=== PATIENT | female | born 1960 | race Caucasian/White ===

== ENCOUNTER → 2019-12-18 14:46 | Outpatient (CLI) | payer OTHER, SELFPAY ==
[2019-12-21 07:42] LABS: COVID19 Sendout Not Detected (Not Detect)
== END ==
PROVIDERS: Visit Provider Physician Assistant
DX: Z11.59 Encounter for screening for other viral diseases (principal)
CPT/HCPCS: 87635

== ENCOUNTER 2020-04-02 08:32 | Observation (INO) | payer OTHER, SELFPAY ==
[2020-04-02] VITALS (11 sets, daily range): BP systolic 140–168; BP diastolic 71–89; PULSE 91–101; RESP 16–26; TEMP 36.6–37.5; O2SAT 97–100; BMI 28.8; BMI 29.8
--- NOTE | 2020-04-02 08:51 | DI.CT.S_ITS ---
PROCEDURE: CT HEAD/BRAIN WO CON INDICATIONS: right side weakness since last night TECHNIQUE: Noncontrast 4.5 mm thick angled axial sections acquired from the foramen magnum to the vertex, with coronal and sagittal reformats. For radiation dose reduction, the following was used: automated exposure control, adjustment of mA and/or kV according to patient size. COMPARISON: None. FINDINGS: Image quality: Excellent. CSF spaces: Basal cisterns are patent. No extra-axial fluid collections. Ventricles are normal in size and shape. Brain: No midline shift. No intracranial masses or hemorrhage. Torres-white matter interface is normal. Skull and face: Calvarium and visualized facial bones are intact, without suspicious lesions. Sinuses: Mucosal thickening is seen involving the left maxillary sinus. No abnormal fluid is seen within the mastoid air cells. IMPRESSION: No CT findings of early stroke are detected. No acute intracranial hemorrhage is seen. If there is strong clinical suspicion for an acute stroke, please consider an MRI for further evaluation, as it is more sensitive (assuming that there is no contraindication to MRI). Dictated by: Cesar Briscoe M.D. on 04/02/2020 at 8:20 Approved by: Cesar Briscoe M.D. on 04/02/2020 at 8:21
--- NOTE | 2020-04-02 08:52 | DI.CT.S_ITS ---
PROCEDURE: CT ANGIO HEAD AND NECK INDICATIONS: right side weakness TECHNIQUE: Noncontrast images were performed earlier in the day and not repeated. After the administration of intravenous contrast, 1 mm thick sections acquired from the aortic arch through the [place] of [place]. Post-contrast 4.5 mm thick sections then re-acquired from the foramen magnum to the vertex. 3-dimensional qfccqcq-podiezgbv-rpckacwlbm (MIP) and/or volume rendering reformats were acquired of the central intracranial vasculature and neck separately. COMPARISON: [facility], CT, CT HEAD/BRAIN WO CON, 04/02/2020, 9:05. FINDINGS: Image quality: Excellent. BRAIN: CSF spaces: Ventricles are normal in size and shape. Basal cisterns are patent. No extra-axial fluid collections. Brain: No midline shift. No intracranial bleeds or masses. Torres-white matter interface appears intact. Skull and face: Calvarium and facial bones appear intact, without suspicious lesions. Orbits appear normal. Sinuses: Sinuses and mastoids are clear. HEAD CT ANGIOGRAPHY: Anterior circulation: Intracranial internal carotid arteries are normal in size and flow. The flow within the paired anterior cerebral arteries is normal and symmetric. The flow within the middle cerebral arteries is normal and symmetric. The anterior communicating artery is seen. No aneurysms are seen. Posterior circulation: Visualized portions of the vertebral arteries demonstrate normal caliber, and join to form a normal appearing basilar artery. Flow within the posterior cerebral arteries is normal and symmetric. No aneurysms are seen. NECK CT ANGIOGRAPHY: Carotid system: The great vessels demonstrate a conventional anatomy as they arise from the aortic arch. The origins of the common carotid arteries appear patent. The common carotid arteries demonstrate normal caliber and courses. The bifurcation regions are both widely patent. The internal carotid arteries demonstrate normal calibers and courses. Posterior circulation: The origins of the vertebral arteries both appear widely patent. The more superior extracranial portions of both vertebral arteries also demonstrate normal courses and calibers. They join to form a normal appearing basilar artery. Soft tissues: Visualized neck soft tissues demonstrate no suspicious abnormalities. Right-sided thyroid nodules are noted, which measure up to 1.5 cm. Bones: No suspicious bony lesions. Visualized cervical spine appears normally aligned. Cervical spine degenerative changes are seen, which are worst at the C5-C6 level, where there is moderate disc space narrowing and at least partially bridging anterior osteophytes IMPRESSION: No significant intracranial arterial abnormality is seen. Within the arteries of the neck, no hemodynamically significant stenosis can be seen. Right thyroid nodules are incidentally noted. If clinically appropriate, please consider a scheduled thyroid ultrasound for further workup. Any quantitative measurements of stenosis were performed using NASCET criteria. Dictated by: Cesar Briscoe M.D. on 04/02/2020 at 8:43 Approved by: Cesar Briscoe M.D. on 04/02/2020 at 8:46
--- NOTE | 2020-04-02 08:52 | PC.NURSE ---
Decreased sensation in upper and lower R extremities, improving over time. Weakness to the R leg is also improving, pt is able to ambulate
[2020-04-02 09:04] LABS: Add Manual Diff / Slide Review NO; Basophils Absolute Auto 0 /uL (0-100); Basophils Percent Auto 0.2 % (0-2); Eosinophils Absolute Auto 0 /uL (0-450); Eosinophils Percent Auto 0.2 % (2-4); Hematocrit 46.9 % (36-46); Hemoglobin 16.2 g/dL (12.0-16.0); Lymphocytes Absolute Auto 1000 /uL (1100-4500); Lymphocytes Percent Auto 8.5 % (25-40); Mean Corpuscular HGB Conc 34.6 % (30-36); Mean Corpuscular Hemoglobin 30.1 PG (26-34); Monocytes Absolute Auto 600 /uL (0-900); Neutrophils Absolute Auto 9700 /uL (1500-7000); Neutrophils Percent Auto 86.1 % (50-75); Platelet Count 177 X10^3/uL (150-400); Red Blood Cell Count 5.39 X10^6/uL (4.0-5.2); Red Cell Distribution Width 13.3 % (11.6-14.8); White Blood Cell Count 11.3 X10^3/uL (4.5-11.0)
--- NOTE | 2020-04-02 09:05 | ED.NEUROSD ---
HPI - Neuro Symptoms/Deficit General Chief Complaint: Neuro Symptoms/Deficit Stated Complaint: stroke sx Time Seen by Provider: 04/02/20 08:43 Source: patient Mode of arrival: Wheelchair Limitations: no limitations History of Present Illness HPI Narrative: Patient is a 59-year-old female who presents with right-sided weakness numbness and dizziness. Last night around 11:00 p.m. without any symptoms. She woke around 3:00-4:00 a.m. started feeling extremely dizzy she tried to get out of bed and go down the stairs but she had to scoot down the stairs on her bottom because the legs did not work. She then said that she laid on the bathroom floor because she did not feel well but her arm felt tingly and numb before that. She tried to get up from the bathroom floor and her right leg gave out from under her. She has continue to have right-sided weakness this morning. She said she needed help from her getting to the car but was able to put some weight and walk on her right leg. She is no longer dizzy or nauseated. She denies any headache chest pain or palpitations. Onset (ago): hour(s) (6) Location: right arm and right leg Severity: moderate Quality: weak On Anticoagulants: No Related Data Home Medications Medication Instructions Recorded Confirmed lisinopril 04/02/20 Allergies Allergy/AdvReac Type Severity Reaction Status Date / Time No Known Drug Allergies Allergy Verified 04/02/20 08:45 Review of Systems Review of Systems ROS Unobtainable: All systems reviewed & are unremarkable except as noted in HPI and below Constitutional Constitutional: Denies chills, Denies fever(s) and Denies lethargy Eyes Eyes: Denies change in vision, Denies diplopia, Denies eye discharge, Denies irritation, Denies loss of peripheral vision and Denies loss of vision ENT Ears, Nose, Mouth, and Throat: Denies change in voice, Reports dizziness, Denies neck pain and Denies sore throat Cardiovascular Cardiovascular: Denies chest pain, Denies irregular heart rhythm, Denies lightheadedness, Denies palpitations, Denies dyspnea, Denies dyspnea on exertion and Denies orthopnea Respiratory Respiratory: Denies cough, Denies dyspnea, Denies dyspnea on exertion and Denies wheezing Gastrointestinal Gastrointestinal: Denies abdominal pain, Denies change in bowel habits, Denies diarrhea, Reports nausea and Denies vomiting Musculoskeletal Musculoskeletal: Denies neck pain Integumentary/Breasts Skin/Breast: Denies pruritus, Denies erythema, Denies rash and Denies wounds Neurologic Neurologic: Reports as per HPI, Reports dizziness, Reports localized weakness, Denies loss of vision and Reports paresthesias Endocrine Endocrine: Denies palpitations Hematologic/Lymphatic On Anticoagulants: No Allergic/Immunologic Allergic/Immunologic: Denies wheezing Patient History Medical History Hypertension Nephrolithiasis Social History household members: spouse Smoking Status: Never smoker alcohol intake: current Smoking Status: Never smoker alcohol intake frequency: 0-2 drinks per day Alcohol type: wine Substance Use Type: does not use Exam Initial Vital Signs Initial Vital Signs: Vital Signs Temperature 98 F 04/02/20 08:35 Pulse Rate 93 H 04/02/20 08:35 Respiratory Rate 16 04/02/20 08:35 Blood Pressure 168/89 H 04/02/20 08:35 Pulse Oximetry 100 04/02/20 08:35 GENERAL: Well-appearing, well-nourished and in no acute distress. HEENT: Head atraumatic,EOMI, pupils reactive, face symmetric, moist mucous membranes CARDIOVASCULAR: Regular rate and rhythm without murmurs, rubs or gallops. RESPIRATORY: Breath sounds equal bilaterally, no wheezes rales or rhonchi. ABDOMEN: Soft, nontender. Normoactive bowel sounds all 4 quadrants. No guarding or rebound. EXTREMITIES: Normal range of motion, no clubbing or edema. Neurovascularly intact NEUROLOGICAL: Alert and oriented x4.Normal gait and speech. Cranial nerves II through XII grossly intact. 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 Scores NIH Stroke Scale Level of Conciousness: Alert, keenly responsive Ask month/age: Answers both questions correctly. Open/close eyes, close hand: Performs both tasks correctly Best gaze horizontal: Normal Visual laird: No visual loss Facial palsy: Normal symetrical movement Left arm drift: No drift for full 10 sec Right arm drift: No drift for full 10 sec Left leg drift: No drift for full 5 sec Right leg drift: Drifts down, not to bed Limb ataxia: Present in one limb Sensory on face/arms/legs: Mild to moderate sensory loss, can tell touch Best language: No aphasia, normal Dysarthria: Normal Extinction or inattention: No abnormality Total NIH Stroke scale score: 3 Course Orders Ordered: ED Orders 04/02/20 08:23 Complete Blood Count AUTO DIFF Stat Comprehensive Metabolic Panel Stat Partial Thromboplastin Time Stat Prothrombin Time INR Stat Troponin & CK Cardiac Panel Stat 04/02/20 08:51 CT head/brain wo con Stat 04/02/20 08:52 CT angio head and neck Stat EKG-12 Lead Stat 04/02/20 10:24 COVID19 Stat 04/02/20 10:52 Urine Drug Screen, Rapid Stat 04/02/20 11:00 Urinalysis and Microscopic Stat Acetaminophen (Acetaminophen 325 Mg Tablet) 650 mg PO Q6HR PRN PRN Reason: Fever/Mild Pain (1-3) Aspirin (Aspirin Ec 81 Mg Tablet) 81 mg PO DAILY EDDIE Enoxaparin Sodium (Enoxaparin 40 Mg/0.4 Ml Syringe) 40 mg SUBCUT DAILY EDDIE Naloxone HCl (Naloxone 0.4 Mg/Ml Vial) 0.2 mg IV Q2MIN PRN PRN Reason: Opiate Reversal Rosuvastatin Calcium (Rosuvastatin 10 Mg Tablet) 10 mg PO BEDTIME EDDIE Vital Signs Vital signs: Vital Signs - 8 hr 04/02/20 08:35 04/02/20 08:47 04/02/20 09:00 Temperature 98 F Pulse Rate 93 H 94 H 95 H Respiratory Rate 16 24 20 Blood Pressure 168/89 H Pulse Oximetry 100 100 99 04/02/20 09:30 04/02/20 10:00 Temperature Pulse Rate 93 H 91 H Respiratory Rate 26 H 20 Blood Pressure Pulse Oximetry 99 97 MDM - Neuro Symptoms/Deficit Lab Data Attestation: I reviewed the patient's lab results. Result diagrams: 04/02/20 08:23 04/02/20 08:23 Labs: Lab Results 04/02/20 04/02/20 04/02/20 Range/Units 08:23 08:23 08:23 WBC 11.3 H (4.5-11.0) X10^3/uL RBC 5.39 H (4.0-5.2) X10^6/uL Hgb 16.2 H (12.0-16.0) g/dL Hct 46.9 H (36-46) % MCV 87.0 (80-100) fL MCH 30.1 (26-34) PG MCHC 34.6 (30-36) % RDW 13.3 (11.6-14.8) % Plt Count 177 (150-400) X10^3/uL Neut % (Auto) 86.1 H (50-75) % Lymph % (Auto) 8.5 L (25-40) % [place] % (Auto) 5.0 (3-14) % Eos % (Auto) 0.2 L (2-4) % Baso % (Auto) 0.2 (0-2) % Neut # (Auto) 9700 H (6220-8231) /uL Lymph # (Auto) 1000 L (7887-8515) /uL [place] # (Auto) 600 (0-900) /uL Eos # (Auto) 0 (0-450) /uL Baso # (Auto) 0 (0-100) /uL PT 11.2 (10.1-12.7) SECONDS INR 1.0 (0.9-1.3) APTT 32 (26.4-36.2) SECONDS Sodium 140 (137-145) mmol/L Potassium 3.5 (3.4-5.1) mmol/L Chloride 103 (98-107) mmol/L Carbon Dioxide 29 (22-32) mmol/L BUN 16 (7-17) mg/dL Creatinine 0.78 (0.52-1.04) mg/dL Estimated GFR > 60.0 (>60) mL/min BUN/Creatinine Ratio 20.5 (6-22) Glucose 133 H (70-100) mg/dL Calcium 9.7 (8.4-10.2) mg/dL Total Bilirubin 0.5 (0.2-1.3) mg/dL AST 60 H (14-36) IU/L ALT 90 H (<35) IU/L Alkaline Phosphatase 125 (38-126) U/L Total Creatine Kinase 373 H (30-135) U/L CK-MB (CK-2) 6.58 H (<2.37) ng/mL CK-MB (CK-2) Rel Index 1.8 (1.5-5.0) % Troponin I < 0.012 (0.01-0.034) ng/mL Total Protein 8.0 (6.3-8.2) g/dL Albumin 4.8 (3.5-5.0) g/dL Globulin 3.2 (1.7-4.1) g/dL Albumin/Globulin Ratio 1.5 (1.0-2.8) Point of Care Testing Glucose POC [address] scan - head: Radiologist's Impression: PROCEDURE: CT HEAD/BRAIN WO CON INDICATIONS: right side weakness since last night TECHNIQUE: Noncontrast 4.5 mm thick angled axial sections acquired from the foramen magnum to the vertex, with coronal and sagittal reformats. For radiation dose reduction, the following was used: automated exposure control, adjustment of mA and/or kV according to patient size. COMPARISON: None. FINDINGS: Image quality: Excellent. CSF spaces: Basal cisterns are patent. No extra-axial fluid collections. Ventricles are normal in size and shape. Brain: No midline shift. No intracranial masses or hemorrhage. Torres-white matter interface is normal. Skull and face: Calvarium and visualized facial bones are intact, without suspicious lesions. Sinuses: Mucosal thickening is seen involving the left maxillary sinus. No abnormal fluid is seen within the mastoid air cells. IMPRESSION: No CT findings of early stroke are detected. No acute intracranial hemorrhage is seen. If there is strong clinical suspicion for an acute stroke, please consider an MRI for further evaluation, as it is more sensitive (assuming that there is no contraindication to MRI). Dictated by: Cesar Briscoe M.D. on 04/02/2020 at 8:20 CTA - brain/neck: Radiologist's Impression: PROCEDURE: CT ANGIO HEAD AND NECK INDICATIONS: right side weakness TECHNIQUE: Noncontrast images were performed earlier in the day and not repeated. After the administration of intravenous contrast, 1 mm thick sections acquired from the aortic arch through the [place] of [place]. Post-contrast 4.5 mm thick sections then re-acquired from the foramen magnum to the vertex. 3-dimensional sqjjctk-rwifvnqly-jctroqcvzo (MIP) and/or volume rendering reformats were acquired of the central intracranial vasculature and neck separately. COMPARISON: [facility], CT, CT HEAD/BRAIN WO CON, 04/02/2020, 9:05. FINDINGS: Image quality: Excellent. BRAIN: CSF spaces: Ventricles are normal in size and shape. Basal cisterns are patent. No extra-axial fluid collections. Brain: No midline shift. No intracranial bleeds or masses. Torres-white matter interface appears intact. Skull and face: Calvarium and facial bones appear intact, without suspicious lesions. Orbits appear normal. Sinuses: Sinuses and mastoids are clear. HEAD CT ANGIOGRAPHY: Anterior circulation: Intracranial internal carotid arteries are normal in size and flow. The flow within the paired anterior cerebral arteries is normal and symmetric. The flow within the middle cerebral arteries is normal and symmetric. The anterior communicating artery is seen. No aneurysms are seen. Posterior circulation: Visualized portions of the vertebral arteries demonstrate normal caliber, and join to form a normal appearing basilar artery. Flow within the posterior cerebral arteries is normal and symmetric. No aneurysms are seen. NECK CT ANGIOGRAPHY: Carotid system: The great vessels demonstrate a conventional anatomy as they arise from the aortic arch. The origins of the common carotid arteries appear patent. The common carotid arteries demonstrate normal caliber and courses. The bifurcation regions are both widely patent. The internal carotid arteries demonstrate normal calibers and courses. Posterior circulation: The origins of the vertebral arteries both appear widely patent. The more superior extracranial portions of both vertebral arteries also demonstrate normal courses and calibers. They join to form a normal appearing basilar artery. Soft tissues: Visualized neck soft tissues demonstrate no suspicious abnormalities. Right-sided thyroid nodules are noted, which measure up to 1.5 cm. Bones: No suspicious bony lesions. Visualized cervical spine appears normally aligned. Cervical spine degenerative changes are seen, which are worst at the C5-C6 level, where there is moderate disc space narrowing and at least partially bridging anterior osteophytes IMPRESSION: No significant intracranial arterial abnormality is seen. Within the arteries of the neck, no hemodynamically significant stenosis can be seen. Right thyroid nodules are incidentally noted. If clinically appropriate, please consider a scheduled thyroid ultrasound for further workup. Any quantitative measurements of stenosis were performed using NASCET criteria. Dictated by: Cesar Briscoe M.D. on 04/02/2020 at 8:43 Approved by: Cesar Briscoe M.D. on 04/02/2020 at 8:46 ECG Data Attestation: I personally reviewed and interpreted this ECG as follows: Interpretation: Normal sinus rhythm rate 94 p.r. interval 166 QRS [address] changes or T-wave inversions MDM Narrative Medical decision making narrative: Patient's symptoms certainly are concerning for stroke. She is able to move her right leg however it is weaker than the left. Along with some mild ataxia in the right arm and decreased sensation on the right side. Discussed case with Dr. Mccloud who agrees for admission Discharge Plan Departure Patient Disposition: Admitted as Observation Clinical Impression: CVA (cerebral vascular accident) Admit Date/Time: 04/02/20 10:22 Admit Provider: Ady Mccloud
[2020-04-02 09:06] LABS: Prothrombin Time 11.2 SECONDS (10.1-12.7)
[2020-04-02 09:09] LABS: PTT Partial Thromboplastin Tim 32 SECONDS (26.4-36.2)
[2020-04-02 09:12] LABS: Alanine Aminotransferase 90 IU/L (<35); Albumin 4.8 g/dL (3.5-5.0); Albumin Globulin Ratio 1.5 (1.0-2.8); Alkaline Phosphatase 125 U/L (38-126); Aspartate Aminotransferase 60 IU/L (14-36); BUN Creatinine Ratio 20.5 (6-22); Bilirubin Total 0.5 mg/dL (0.2-1.3); Blood Urea Nitrogen 16 mg/dL (7-17); Calcium 9.7 mg/dL (8.4-10.2); Carbon Dioxide 29 mmol/L (22-32); Chloride 103 mmol/L (98-107); Creatine Kinase 373 U/L (30-135); Estimated Glomerular Filt Rate > 60.0 mL/min (>60); Globulin 3.2 g/dL (1.7-4.1); Glucose 133 mg/dL (70-100); HEMOLYSIS 25 (0-50); Potassium 3.5 mmol/L (3.4-5.1); Sodium 140 mmol/L (137-145)
[2020-04-02 09:23] LABS: Troponin I < 0.012 ng/mL (0.01-0.034)
[2020-04-02 09:27] LABS: CKMB % Relative Index 1.8 % (1.5-5.0); Creatine Kinase MB 6.58 ng/mL (<2.37)
--- NOTE | 2020-04-02 10:43 | P.HP_ITS ---
History of Present Illness History of Present Illness Date Patient Seen: 04/02/20 Chief complaint: stroke sx Narrative: 59 year old female who normally sees Dr. Jamar Garcia of [facility] who presented to the [facility] Emergency Department day of admission with right-sided weakness and dizziness. 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 She had to scoot herself down her stairs on her backside in order to be safe to get down stairs. She feels like this was due to her dizziness and instability on her feet rather than any true weakness. Her right arm felt numb and tingly as she laid on the bathroom floor. She was unable to stand because her right leg would not support her. With assistance from her spouse she was able to get into the car and bear some weight on the right leg. She was transported via private vehicle to the emergency department where she was evaluated Emergency department she was found to be mildly hypertensive but otherwise essen tially unremarkable. Head CT unremarkable CT angiogram unremarkable normal sinus rhythm on ECG with old incomplete right bundle branch block. During her evaluation and workup in the emergency department her symptoms have gradually but completely resolved. She does not feel like there is any numbness tingly symptoms leftover. She feels like her leg and arm are working correctly. She was able to stand to get into a wheelchair and then get into her bed in the hospital. She had difficulty with dpuiza-tv-rprr testing when tested in the ER and is perfect with that now. Patient History Medical History Hypertension Nephrolithiasis Family & Social History Safety & Behavioral: Feels Safe in Current Yes Environment Tobacco & Substance use: Smoking Status Never smoker alcohol intake frequency 0-2 drinks per day Substance Use Type does not use Meds Home Medications and Allergies Home Medications Medication Instructions Recorded Confirmed Type aspirin 81 mg PO DAILY #30 tab 04/02/20 Rx omeprazole 40 mg PO DAILY 04/02/20 04/02/20 History Allergies Allergy/AdvReac Type Severity Reaction Status Date / Time No Known Drug Allergies Allergy Verified 04/02/20 08:45 Review of Systems Constitutional Constitutional: Denies excessive sweating, Denies fever(s), Denies headache(s), Reports weakness (Right side), Denies weight gain and Denies weight loss Eyes Eyes: Denies change in vision, Denies itchy eyes, Denies loss of vision and Denies other visual disturbances ENT Ears, Nose, Mouth, and Throat: No change in voice, No dysphagia, Yes dizziness, No otalgia, No headache(s), No hoarseness, No lip swelling, No neck pain, No sore throat, No throat swelling and No tongue swelling Cardiovascular Cardiovascular: Denies chest pain, Denies syncope, Denies rapid heart rate, Denies irregular heart rhythm, Denies palpitations, Denies dyspnea, Denies dyspnea on exertion and Denies slow heart rate Respiratory Respiratory: Denies chest congestion, Reports cough (Persistent cough prior to this illness thought to be due to her lisinopril), Denies hemoptysis, Denies dyspnea, Denies dyspnea on exertion, Denies stridor and Denies wheezing Gastrointestinal Gastrointestinal: Denies abdominal pain, Denies bloating, Denies change in bowel habits, Denies change in stool character, Denies dysphagia, Denies nausea, Denies vomiting and Denies hematemesis Genitourinary Genitourinary: Denies hematuria, Denies urinary frequency and Denies difficulty voiding Musculoskeletal Musculoskeletal: Reports abnormal gait, Denies myalgias, Denies arthralgias, Denies limited range of motion and Denies neck pain Integumentary/Breasts Skin/Breast: Denies bleeding lesions, Denies change in pigmentation, Denies changing lesions, Denies new lesions, Denies rash, Denies skin swelling, Denies sores and Denies jaundice Neurologic Neurologic: Reports as per HPI, Denies abnormal speech, Reports abnormal gait, Denies behavioral changes, Denies confusion, Reports dizziness, Denies syncope, Denies headache(s), Denies loss of vision, Denies memory loss, Denies seizure- like activity, Reports paresthesias and Reports weakness (Right side) Psychiatric Psychiatric: Denies behavioral changes, Denies change in appetite, Denies confusion, Denies difficulty concentrating, Denies auditory hallucinations, Denies memory loss, Denies mood swings and Denies suicidal ideation Endocrine Endocrine: Denies excessive sweating, Denies flushing, Denies polyuria and Denies palpitations Hematologic/Lymphatic Hematologic/Lymphatic: Denies easy bleeding, Denies easy bruising and Denies lymphadenopathy Allergic/Immunologic Allergic/Immunologic: Denies urticaria, Denies itchy eyes, Denies lip swelling, Denies throat swelling, Denies tongue swelling and Denies wheezing Exam Vital Signs (past 8 hours): - 04/02/20 08:35 04/02/20 08:47 04/02/20 09:00 Temperature 98 F Pulse Rate 93 H 94 H 95 H Respiratory Rate 16 24 20 Blood Pressure 168/89 H Pulse Oximetry 100 100 99 04/02/20 09:30 04/02/20 10:00 Temperature Pulse Rate 93 H 91 H Respiratory Rate 26 H 20 Blood Pressure Pulse Oximetry 99 97 Oxygen Delivery Method Room Air Narrative Exam Narrative: Non acutely ill-appearing middle-aged female HEENT-unremarkable no more cephalic atraumatic PERRLA EOMs intact Neck-no lymphadenopathy no bruits Lungs-good breath sounds clear Heart-regular rate and rhythm no murmur Abdomen-soft, positive bowel tones common no distention rebound or guarding Neuro-alert orient x3, no cranial nerve defects, muscle strength 5/5 upper and lower extremities, no abnormal reflexes Objective Labs Result Diagrams: 04/02/20 08:23 04/02/20 08:23 Labs: Laboratory Results - last 24 hr 04/02/20 04/02/20 04/02/20 08:23 08:23 08:23 WBC 11.3 H RBC 5.39 H Hgb 16.2 H Hct 46.9 H MCV 87.0 MCH 30.1 MCHC 34.6 RDW 13.3 Plt Count 177 Neut % (Auto) 86.1 H Lymph % (Auto) 8.5 L Lee % (Auto) 5.0 Eos % (Auto) 0.2 L Baso % (Auto) 0.2 Neut # (Auto) 9700 H Lymph # (Auto) 1000 L Lee # (Auto) 600 Eos # (Auto) 0 Baso # (Auto) 0 PT 11.2 INR 1.0 APTT 32 Sodium 140 Potassium 3.5 Chloride 103 Carbon Dioxide 29 BUN 16 Creatinine 0.78 Estimated GFR > 60.0 BUN/Creatinine Ratio 20.5 Glucose 133 H Calcium 9.7 Total Bilirubin 0.5 AST 60 H ALT 90 H Alkaline Phosphatase 125 Total Creatine Kinase 373 H CK-MB (CK-2) 6.58 H CK-MB (CK-2) Rel Index 1.8 Troponin I < 0.012 Total Protein 8.0 Albumin 4.8 Globulin 3.2 Albumin/Globulin Ratio 1.5 Assessment & Plan Assessment & Plan narrative: 1. 59-year-old female only prior history is of hypertension who presents with significant neurologic symptoms consistent with probable TIA given resolution of symptoms. 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 Also needs telemetry monitoring for rhythm disturbance evaluation. She should be seen by skilled therapies for evaluation and treatment as indicated She should be started on anti-platelet therapy which was done in the ER and will be continued. She will also be started on statin therapy for risk reduction. 2. Hypertension-apparently this is patient's only known medical problem although does have a distant history of kidney stones. Will allow some permissive hypertension during early part of this hospitalization so no specific treatment for blood pressures in the 160 systolic currently. Will likely be switched to an alternate antihypertensive upon discharge given her cough with the lisinopril for which she was actually going to speak with her PCP about at a prescheduled upcoming appointment anyway. 3. VTE prophylaxis-Lovenox would be appropriate given lack of evidence of bleeding on [employer] imaging. This is been ordered. 4. Code status-patient should be considered full code in the event of a sudden cardiac or respiratory arrest which is not anticipated of course. Scores NIHSS Level of Conciousness: Alert, keenly responsive Ask month/age: Answers both questions correctly. Open/close eyes, close hand: Performs both tasks correctly Best gaze horizontal: Normal Visual laird: No visual loss Facial palsy: Normal symetrical movement Left arm drift: No drift for full 10 sec Right arm drift: No drift for full 10 sec Left leg drift: No drift for full 5 sec Right leg drift: No drift for full 5 sec Limb ataxia: Absent Sensory on face/arms/legs: Normal, no sensory loss Best language: No aphasia, normal Dysarthria: Normal Extinction or inattention: No abnormality Total NIH Stroke scale score: 0
[2020-04-02 10:48] LABS: COVID19 -Nasal RAPID Negative (Negative)
--- NOTE | 2020-04-02 10:59 | DI.ECHO.S_ITS ---
[facility] +---------+ : : [address] : : : : [id number] : : : : Phone: [phone] Echocardiogram Report + + :Name: ORTIZ AGUILAR Study Date: 04/02/2020 Height: 68 in : :[facility] ReadingLocation: Weight: 190 lb : : Gender: Female BSA: 2.0 m2 : :: 1960 Age: 59 yrs BP: 143/71 mmHg: :Reason For Study: CVA : :Ordering Physician: GABBY, : :YASEMIN Rae Performed By: Ngozi Chen : :Referring: YASEMIN PIERRE : + + Interpretation Summary 1) Mildly increased left ventricular thickness (concentric) with small size, normal wall motion, and normal systolic function (EF 65-70%). 2) Normal right ventricular size and function. 3) No significant valvular abnormalities. 4) Injection of contrast documented no interatrial shunt. 5) No prior Echo available for comparison. Procedure: A two-dimensional transthoracic echocardiogram with color flow and Doppler was performed. The study quality was technically adequate. There is no prior echocardiogram noted for this patient. A saline contrast injection was performed to assess for cardiac shunting. The injection was performed through an intravenous line in the left arm. The patient was in sinus tachycardia with heart rates between 98-108 bpm during the exam. Left Ventricle: The left ventricular cavity is small. There is mild concentric left ventricular hypertrophy. The ejection fraction is estimated to be 65-70%. Right Ventricle: The right ventricle is normal in size and function. Atria: The left atrial size is normal. Right atrial size is normal. There is no Doppler evidence for an interatrial shunt. Injection of contrast documented no interatrial shunt. Mitral Valve: The mitral valve is normal in structure and function. There is mild mitral annular calcification. There is trace mitral regurgitation. Aortic Valve: The aortic valve opens well. There is no aortic valve stenosis. No aortic regurgitation is present. Tricuspid Valve: The tricuspid valve is normal in structure and function. There is trace tricuspid regurgitation. Pulmonary artery pressures cannot be estimated because of the lack of a measurable TR jet velocity but the IVC suggests a CVP of around 3 mmHg. Pulmonic Valve: The pulmonic valve leaflets are thin and pliable; valve motion is normal. There is no pulmonic valvular regurgitation. Great Vessels: The aortic root is normal size. The ascending aorta is at the upper limits of normal in size. The IVC is of normal diameter and collapses greater than 50% with a sniff. This suggests a low right atrial pressure of 3 mm Hg. Pericardium/ Pleura There is no pericardial effusion. There is no pleural effusion. MMode/2D Measurements & Calculations LVIDd: 3.9 cm LVOT diam: 2.1 cm LVIDs: 2.5 cm Ao root diam: 3.3 cm FS: 36.1 % asc Aorta Diam: 3.4 cm IVSd: 1.1 cm Ao Arch Diam (Prox Trans): 3.3 cm LVPWd: 1.2 cm LV kaplna. diameter/BSA (cm/m^2): 2.0 LV sys. diameter/BSA (cm/m^2): 1.3 LA A2 area: 16.6 cm2 RA long axis: 4.9 cm LA A4 area: 14.4 cm2 RA area: 12.1 cm2 LA length (vol): 4.9 cm RA vol: 25.5 ml LA vol: 40.9 ml RA : 12.8 ml/m2 LA vol index: 20.5 ml/m2 RVD1 (basal): 2.4 cm TAPSE: 1.6 cm Doppler Measurements & Calculations Ao V2 max: 125.6 cm/sec LVOT Max William: 96.1 cm/sec Ao V2 mean: 97.5 cm/sec LV V1 max P.7 mmHg Ao max P.3 mmHg LV V1 VTI: 17.6 cm Ao mean P.1 mmHg NERIS(I,D): 2.6 cm2 Ao V2 VTI: 23.4 cm NERIS(V,D): 2.7 cm2 sev ratio: 0.75 NERIS indexed to BSA (cm^2/m^2): 1.3 MV E max william: 73.8 cm/sec PA V2 max: 128.5 cm/sec MV A max william: 115.6 cm/sec PA V2 mean: 80.8 cm/sec MV E/A: 0.64 PA mean P.0 mmHg Med Peak E' William: 4.8 cm/sec PA pr(Accel): 12.2 mmHg E/E' med: 15.3 MV dec time: 0.18 sec SV(LVOT): 61.7 ml Reading Physician:01:10 PM
--- NOTE | 2020-04-02 10:59 | DI.MRI.S_ITS ---
PROCEDURE: MR STROKE Pre- and post-contrast brain MRI, non-contrast brain MR angiogram, pre- and postcontrast neck MR angiogram INDICATIONS: cva TECHNIQUE: Brain: Noncontrast axial T1 spin echo, axial T2 fast spin echo, sagittal and axial FLAIR, coronal T2 fast spin echo, axial gradient echo, axial diffusion and ADC through the brain. After the administration of contrast, axial 3D VIBE of the cranial vasculature and brain. Brain MRA: Non-contrast 3-D time of flight MR angiogram, with multiple myfbalv-gpservist-wqqkhhxouc (MIP) reformats performed. Neck MRA: Axial and sagittal TruFISP through the neck. Coronal dynamic MR angiogram during administration of contrast in the arterial and venous phases, with 3-dimenstional hoyhgma-ekupdavll-hbunckalht (MIP) reformats constructed from subtraction images. COMPARISON: None. FINDINGS: Image quality: Excellent. BRAIN: CSF spaces: Ventricles are normal in size and shape. Basal cisterns are patent. No extra-axial fluid collections. Brain: No intracranial bleeds or mass effects. Torres-white matter interface is normal. Diffusion weighted images show no acute ischemic insults. Brainstem appears normal. Normal intravascular flow voids are present. No abnormal intracranial enhancement. Skull and face: Calvarial marrow signal is normal. Orbits appear normal. Sinuses: Bilateral maxillary sinus mucosal thickening, left greater than right. Left ethmoid mucosal thickening. BRAIN MR ANGIOGRAM: Anterior circulation: Intracranial internal carotid arteries are normal in size and enhancement. The flow within the paired anterior cerebral arteries is normal and symmetric. The flow within the middle cerebral arteries is normal and symmetric. The anterior communicating artery is seen. No stenoses, occlusions, or aneurysms. Posterior circulation: The visualized portions of the vertebral arteries demonstrate normal caliber, and join to form a normal appearing basilar artery. The flow within the posterior cerebral arteries is normal and symmetric. No stenoses, occlusions, or aneurysms. NECK MR ANGIOGRAM: Carotids: Great vessels demonstrate a conventional anatomy as they arise from the aortic arch. The origins of the common carotid arteries appear patent. The calibers and courses of both common carotid arteries are normal. The bifurcation regions appear normal bilaterally. The internal carotid arteries demonstrate normal course and caliber. Posterior circulation: The origins of the vertebral arteries appear patent. More superior portions of both vertebral arteries demonstrate normal course and caliber, and join to form a normal appearing basilar artery. Miscellaneous: Subclavian arteries appear patent. Pre-contrast images through the neck show no soft tissue abnormalities. IMPRESSION: BRAIN MRI: 1. Normal appearance of brain parenchyma. No evidence acute stroke, hemorrhage, or mass. 2. Mild chronic sinus disease. BRAIN MR ANGIOGRAM: Unremarkable. No stenosis, occlusion, or aneurysm identified. NECK MR ANGIOGRAM: Unremarkable. Widely patent carotids. Dictated by: Moses Pate M.D. on 04/02/2020 at 15:19 Approved by: Moses Pate M.D. on 04/02/2020 at 15:24
[2020-04-02 11:09] LABS: UR Morphine/Opiate cutoff 300 Negative (Negative); Ur Creatinine Normal (Normal); Ur Specific Gravity Normal (Normal); Urine Amphetamines Negative (Negative); Urine Barbiturates Negative (Negative); Urine Benzodiazepines Negative (Negative); Urine Cocaine Negative (Negative); Urine MDMA Negative (Negative); Urine Methadone Negative (Negative); Urine Methamphetamines Negative (Negative); Urine Oxycodone Negative (Negative); Urine Phencyclidine Negative (Negative); Urine Tetrahydrocannabinol Negative (Negative); Urine Tricyclic Antidepressant Negative (Negative); Urine pH Normal (Normal)
[2020-04-02 12:31] LABS: Bacteria Urine None Seen; RBC Urine None Seen (0-5/HPF); WBC Urine None Seen (0-5/HPF)
[2020-04-02 12:37] LABS: Appearance Urine UA CLEAR; Bilirubin Urine UA NEGATIVE (NEGATIVE); Color Urine UA YELLOW; Glucose Urine UA TRACE g/dL (Negative); Ketones Urine UA NEGATIVE (NEGATIVE); Leukocyte Esterase Urine UA NEGATIVE (NEGATIVE); Nitrite Urine UA NEGATIVE (Negative); Occult Blood Urine UA TRACE-LYSED (Negative); Protein Urine UA NEGATIVE (Negative); Specific Gravity Urine UA <=1.005 (1.000-1.035); Urobilinogen Urine UA 0.2 E.U./dL (0.2)
[2020-04-02 12:39] LABS: Amorphous Sediment Urine 2+; Culture Indicated Urine Cult Not Indicated
--- NOTE | 2020-04-02 13:03 | ST.IPIE ---
Visit Care Team Role Provider Type Doctor MD Denis Primary Care Provider Non-Staff Specialty: Medical Address: Phone: Fax: Email: Lindsey Shearer DO Emergency Provider Physician Referring Provider Specialty: Emergency Medicine Address: [address] [place] [address], [address] Email: [email or web address] Jamar Garcia MD Attending Provider Physician Specialty: Family Practice Address: [address] [place] [address], [address], [place], [address] Email: [email or web address] Ady Mccloud MD Admit Provider Physician Other Providers Specialty: Internal Medicine Address: [address] [place] [address], [place] [address], [place], [address] Email: [email or web address] Past Medical History (Last Reviewed 04/02/20 @ 10:49 by Ady Mccloud MD) Hypertension (Medical) Nephrolithiasis (Medical) ST IP Initial Evaluation Report CAFETERIA COOK Motor Speech Evaluation Start: 04/02/20 12:50 Freq: Status: Active Protocol: Document 04/02/20 12:52 MG (Rec: 04/02/20 13:03 MG [id number]) Motor Speech Evaluation Session Time Visit Start Time 12:30 Visit Stop Time 12:50 Total Visit Minutes 20 Visit Information Visit Number 1 Setting Setting Acute Care Patient History Source: [employer] (DANIEL). Patient History 59 year old female who presented to the [facility] Emergency Department day of admission with right- sided weakness and dizziness. 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 Her right arm felt numb and tingly. She was unable to stand because her right leg would not support her. With assistance from her spouse she was able to get into the car and bear some weight on the right leg. She was transported via private vehicle to the emergency department where she was evaluated. Emergency department she was found to be mildly hypertensive but otherwise essentially unremarkable. Head CT unremarkable CT angiogram unremarkable normal sinus rhythm on ECG with old incomplete right bundle branch block. During her evaluation and workup in the emergency department her symptoms have gradually but completely resolved. She does not feel like there is any numbness tingly symptoms leftover. She feels like her leg and arm are working correctly. She was able to stand to get into a wheelchair and then get into her bed in the hospital. She had difficulty with finger-to -nose testing when tested in the ER and is perfect with that now. Mental Status Mental Status Alert,Responsive,Cooperative Subjective Observations Subjective Pt was sitting upright in bed eating lunch. Pt was agreeable to CAFETERIA COOK entry to conduct speech/swallow/cog evaluation. Pt reported that she had no concerns with her abilities or noted any changes with the exception of the right sided weakness. Oral Motor Lips Function WFL Tongue Function WFL Jaw Function WFL Soft Palate Function WFL Respiration/Phonation Phonation Quality WFL Function WFL Conversation Quality WFL Duration WFL Function WFL Loudness WFL Diadochokinetic Rates P^ Quality WFL T^ Quality WFL K^ Quality WFL P^T^K^ Quality WFL Speech Intelligibility Awareness/Strategy Use Findings Details Motor Speech Function WFL Assessment Details Assessment Pt's speech/language abilities are not impacted at this time . Pt followed directions and could clearly express her thoughts to the CAFETERIA COOK. Laryngeal palpation was conducted and resulted in WFL movement. Pt did not show overt s/sx of aspiration when consuming solids and liquids from her lunch. SLUMS was administered and pt scored 29/30, indicating no cognitive deficits at this time. Prognosis Rehabilitation Potential Excellent Recommendations Treatment Recommended No: No deficits noted requiring skilled ST at this time Patient/Family Education Education Described results of evaluation,Patient Understanding
--- NOTE | 2020-04-02 13:32 | PC.ADMIT ---
[facility] Admission Note: The patient,Leon Norton,59 y/o, was given written information regarding hospital policies, unit procedures and contact persons. Patient's smoking status: Never smoker. Vital Signs - 8 hr 04/02/20 08:35 04/02/20 08:47 04/02/20 09:00 Temperature 98 F Pulse Rate 93 H 94 H 95 H Respiratory Rate 16 24 20 Blood Pressure 168/89 H Pulse Oximetry 100 100 99 04/02/20 09:30 04/02/20 10:00 04/02/20 10:30 Temperature Pulse Rate 93 H 91 H 98 H Respiratory Rate 26 H 20 26 H Blood Pressure Pulse Oximetry 99 97 97 04/02/20 10:49 04/02/20 11:00 04/02/20 11:15 Temperature 99.1 F Pulse Rate 101 H 101 H Respiratory Rate 24 17 Blood Pressure 143/71 H 142/82 H Pulse Oximetry 98 98 98 Rec'd pt from ED via w/c at 1100. Pt is AO x4 and making her needs known with clear, logical speech. NIH assessed at 1 for minimal right arm drift. Pt states symptoms have improved greatly since time of arrival. Admission assessment completed. Bedside swallow eval done. Pt is unsure of name/dose of home meds. will bring in meds or a list to complete med rec. Pt also states she has advanced directives for healthcare and she asks her to bring those in from home as well. Oriented pt/spouse to room/routine, fall risk, use of call light, and instructed to wait for assistance prior to getting OOB. Pt verbalizes understanding. Bed alarm on, call light in reach, bed locked/low. Dr. Mccloud rounded on pt at 1100.
--- NOTE | 2020-04-02 13:55 | PC.NURSE ---
Pt off unit to MRI at 1355.
--- NOTE | 2020-04-02 14:32 | OT.IPNOTE ---
Attempted to see pt for OT eval. Pt is off the floor at MRI. Will follow up as able.
--- NOTE | 2020-04-02 14:56 | PT.IIE ---
Medical History (Last Reviewed 04/02/20 @ 10:49 by Ady Mccloud MD) Hypertension Nephrolithiasis Physical Therapy Inpatient Evaluation/Re-Eval M1 PT/OT-IP Prior Functional Status Start: 04/02/20 15:11 Freq: NEEDED Status: Active Protocol: Document 04/02/20 15:11 CGR (Rec: 04/02/20 15:27 CGR [id number]) Medical Review Prior Functional Status Medical History Reviewed Yes Communication Pt is an effective verbal communicator. Mobility and Gait Pt was IND in all mobility without AD Activities of Daily Living and IADL's Pt was IND in all ADLs prior to admit. Social History Household Members spouse Living Arrangements House Number of Floors (Floors) Two Floors Number of Stairs To Enter/Railing? 1 step to enter and 14 steps to second floor with B railing . 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 M1 PT/OT-IP Prior Functional Status Start: 04/02/20 15:28 Freq: NEEDED Status: Active Protocol: Document 04/02/20 14:56 AB (Rec: 04/02/20 15:42 AB [id number]) Medical Review Prior Functional Status Medical History Reviewed Yes Communication able to make needs known Mobility and Gait pt stated that she is independent with all mobilities and ambulation without AD Activities of Daily Living and IADL's independent Social History Household Members spouse Living Arrangements House Number of Floors (Floors) Two Floors Number of Stairs To Enter/Railing? 1 step to enter 14 steps with B rails to bedroom level Home Environment Standard Height Toilet,Walk in Shower Employment Status Self-Employed M2 PT-IP Current Condition Start: 04/02/20 15:28 Freq: NEEDED Status: Active Protocol: Document 04/02/20 14:56 AB (Rec: 04/02/20 15:42 AB [id number]) Physical Therapy Current Condition Current Condition Evaluation Date 04/02/20 Treatment Diagnosis CVA; difficulty in walking Onset Date 04/02/20 M3 PT-IP Subjective Start: 04/02/20 15:28 Freq: NEEDED Status: Active Protocol: Document 04/02/20 14:56 AB (Rec: 04/02/20 15:42 AB [id number]) Subjective Physical Therapy Visit Type Type Initial Evaluation Visit Start Time 14:56 Visit Stop Time 15:09 Total Visit Minutes 13 Number of FNPS Visits 0 Therapy Pain Assessment Pain When Pain Assessed At Rest Location Neck Scale Used R paravertebral pain with c/o head heaviness M4 PT-IP Mobility and Gait Start: 04/02/20 15:28 Freq: NEEDED Status: Active Protocol: Document 04/02/20 14:56 AB (Rec: 04/02/20 15:42 [email or web address]) PT-Bed Mobility Assessment Sit to Supine Sit to Supine Standby Assistance PT-Transfer Assessment Sit to and From Stand Sit to and from Stand Contact Guard Assistance,1 Person Assistance Equipment Transfer Assistive Device None,Gait Belt Orthotic/Prosthetic Devices or Brace: No Comments Mobility Comments pt completed ambulation in room without AD and presents with antalgic gait with increase lateral trunk lean to the R. pt stated that RLE is not feeling normal. assessed ambulation using FWW and pt completed ~ 30 ft CGA. pt is steadier with FWW and less antalgic gait and able to center trunk. educated pt on safety and use of FWW at this time. pt agreed. pt requested to go back to bed and completed sit to supine SBA. positioned pt in bed. call light and table placed within reach. Gait Assessment Gait Gait Assistance Required: Contact Guard Assist Distance (Feet) 30 Able to Maintain Weight Bearing Status Yes During Gait Assistive Devices Assistive Device None,Gait Belt,Front Wheeled Walker Orthotic/Prosthetic Devices or Brace: No Gait Deviations General Gait Pattern Antalgic,Decreased Stride Length,Decreased Feet Clearance Factors Limiting Gait Function Factors Limiting Gait Function Decreased Activity Tolerance, Decreased Strength,Limited Range of Motion,Pain,Poor Balance Comments Gait Comments pls refer to mobility section for details PT-Balance Assessment Sitting Balance and Reactions Static Sitting Balance Ability Normal Dynamic Sitting Balance Ability Good Standing Balance and Reactions Static Standing Balance Ability Fair Dynamic Standing Balance Ability Fair Device Used without AD M5 PT-IP Objective Assessments Start: 04/02/20 15:28 Freq: NEEDED Status: Active Protocol: Document 04/02/20 14:56 AB (Rec: 04/02/20 15:42 [email or web address]) Orientation Orientation/Cognition Level of Alertness Alert Orientation Name,Age,Birthday,Month,Date, Year,Day of Week,Place, Situation Language Function Ability No Deficits Noted Safety Awareness Understands Safety Issues Memory Description No Deficits Noted Gross Range of Motion Lower Extremity ROM Assessment Within Functional Limits Strength Comments Strength Comments slight weakness on RLE but with the safem muscle grading Sensation Assessment Sensation Gross Sensation WNL Muscle Tone Muscle Tone WNL Yes M6 PT-IP Treatment Start: 04/02/20 15:28 Freq: NEEDED Status: Active Protocol: Document 04/02/20 14:56 AB (Rec: 04/02/20 15:42 AB [id number]) Physical Therapy Treatment Education Education Provided Safety M7 PT-IP Assessment and Plan Start: 04/02/20 15:28 Freq: NEEDED Status: Active Protocol: Document 04/02/20 14:56 AB (Rec: 04/02/20 15:42 AB [id number]) PT Summary Assessment and Plan Potential Rehabilitation Potential Good Status of Condition at Evaluation Stable Summary Impairments Pain,Strength,Balance,Bed Mobility,Transfers,Gait, Activity Tolerance Assessment Summary pt requiring CGA with ambulation and recommending use of FWW at this time for safety. PT will work on pt's strength, standing balance and ambulation to be able to ambulate without AD safely with less gait deviation. pt will likely progress during hospital stay. pt plans to go home and spouse to assist her . If pt continues to have R sided weakness, balance deficits and unsteady ambulation, pt may require outpt PT to improve mobility and standing balance. will continue to assess progress. Goals Bed Mobility Goal Independent Transfer Goal Independent,Cane,Front Wheeled Walker Gait Goal Independent,Cane,Front Wheel Walker Gait Distance 300 Other Goals improve ambulation without AD 300 ft independent up/down 1 step without AD SBA up/down 14 steps B rails mod I Days to Meet Goals 5 Frequency of Treatment Frequency Of Treatment Once a Day Treatment Plan Physical Therapy Treatment Plan Bed Mobility Training,Transfer Training,Gait Training, Therapeutic Exercise,Balance Retraining,Discharge Planning, Neuromuscular Re-ed, Coordination Retraining Recommendations To Nursing Amount of Assist Needed 1 Person Assist Discharge Recommendations PT Discharge Recommendations Home with Assistance, Outpatient PT Equipment Needed for Home Before FWW/SPC if not safe without AD Discharge Transportation Needs at Discharge Private Vehicle
--- NOTE | 2020-04-02 15:04 | OT.IP.EVAL ---
Past Medical History (Last Reviewed 04/02/20 @ 10:49 by Ady Mccloud MD) Hypertension Nephrolithiasis Occupational Therapy Inpatient Evaluation/Re-Eval M1 PT/OT-IP Prior Functional Status Start: 04/02/20 15:11 Freq: NEEDED Status: Active Protocol: Document 04/02/20 15:11 CGR (Rec: 04/02/20 15:27 CGR [id number]) Medical Review Prior Functional Status Medical History Reviewed Yes Communication Pt is an effective verbal communicator. Mobility and Gait Pt was IND in all mobility without AD Activities of Daily Living and IADL's Pt was IND in all ADLs prior to admit. Social History Household Members spouse Living Arrangements House Number of Floors (Floors) Two Floors Number of Stairs To Enter/Railing? 1 step to enter and 14 steps to second floor with B railing . 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 M2 OT-IP Current Condition Start: 04/02/20 15:11 Freq: Status: Active Protocol: Document 04/02/20 15:11 CGR (Rec: 04/02/20 15:27 CGR [id number]) Occupational Therapy Current Condition Current Condition Evaluation Date 04/02/20 Treatment Diagnosis R sided weakness Diagnosis Onset Date 04/02/20 M3 OT- IP Subjective and Pain Start: 04/02/20 15:11 Freq: Status: Active Protocol: Document 04/02/20 15:11 CGR (Rec: 04/02/20 15:27 CGR [id number]) OT- Subjective Occupational Therapy Visit Type Type Initial Evaluation Visit Start Time 14:49 Visit Stop Time 15:04 Total Visit Minutes 15 Notes Partial co-treat with P.T. Occupational Therapy Visit Comments Patient Comments I feel stronger on my right side than I did earlier. OT Pain Assessment Pain Present Pain Present Pain Reported Location Neck Scale Used did not rate Pain Behaviors Guarding Management Techniques Distraction,Modification of Treatment,Re-positioning M4 OT- IP ADL's Start: 04/02/20 15:11 Freq: Status: Active Protocol: Document 04/02/20 15:11 CGR (Rec: 04/02/20 15:27 CGR [id number]) OT [id number] Comments OT Self-Feeding Comments Not meal time OT ADL-Grooming Comments OT Grooming Comments Not performed OT ADL-Oral Care Comments Oral Care Comments Not performed OT ADL-Dressing General Eval Lower Body Dressing Ability Independent Areas Needing Assistance Socks OT ADL-Toileting General Evaluation Toileting Ability Independent OT ADL-Bathing Comments OT Bathing Comments Not performed M5 OT- IP IADL's Start: 04/02/20 15:11 Freq: Status: Active Protocol: Document 04/02/20 15:11 CGR (Rec: 04/02/20 15:27 CGR [id number]) OT-Instrumental Activities of Daily Living Deficits IADL Deficits Identified No Deficits Home Safety Awareness Awareness of Need for Assistance at Home Good Awareness Ability to Problem Solve Emergency Able to Problem Solve Situations Medication Management Medication Management No Deficits Identified Money Management Money Management No Deficits Identified Meal Preparation Meal Preparation No Deficits Identified Music Cataloguer Music 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 No Deficits Identified Driving Driving Caregiver Provides Assist M6 OT- IP Functional Cognition Start: 04/02/20 15:11 Freq: Status: Active Protocol: Document 04/02/20 15:11 CGR (Rec: 04/02/20 15:27 CGR [id number]) Cognitive Factors Limiting Selfcare Function Cognitive Ability Level of Alertness Alert Patient Orientation Name,Age,Birthday,Month,Date, Year,Day of Week,Place, Situation Attention Span Ability Capable of Focused Attention, Capable of Sustained Attention Ability to Follow Commands Able to Follow Multi-Step Commands Memory Description No Deficits Noted OT- Vision and Hearing OT- Hearing Assessment OT- Hearing Assessment WFL OT- Vision Assessment Visual Acuity WFL Visual Attentiveness WFL Occular Pursuits WFL Visual Convergence WFL M7 OT- IP Mobility and Balance Start: 04/02/20 15:11 Freq: Status: Active Protocol: Document 04/02/20 15:11 CGR (Rec: 04/02/20 15:27 CGR [id number]) OT- Bed Mobility Assessment Rolling Level of Assistance Independent Supine to Sit Supine to Sit Assist Independent Scooting Scooting to Edge of Bed Independent OT-Transfer Assessment Sit to and From Stand Sit to and from Stand Standby Assistance Transfers Transfer Ability Standby Assistance Technique Transfer Destination Bed,Toilet Transfer Technique Stand Step Pivot Devices Transfer Assistive Devices Gait Belt OT- Balance Assessment Sitting Balance and Reactions Static Sitting Balance Ability Normal Standing Balance and Reactions Static Standing Balance Ability Good Dynamic Standing Balance Ability Good M8 OT- IP Objective Assessments Start: 04/02/20 15:11 Freq: Status: Active Protocol: Document 04/02/20 15:11 CGR (Rec: 04/02/20 15:27 CGR [id number]) OT Gross Range of Motion Upper Extremity Range of Motion Assessment Within Functional Limits OT Strength Upper Extremity Strength Assessment Within Functional Limits Comments Strength Comments Grossly 4/5, slight weakness noted to the R but not great enough to warrant a change in strengh between BUE. OT- Coordination Assessment Upper Extremity Finger to Nose Test Within Functional Limits Finger Tapping Test Within Functional Limits OT-Muscle Tone Assessment Muscle Tone WNL Yes OT Sensation Assessment Edema Edema Absent M9 OT- IP Assessment and Plan Start: 04/02/20 15:11 Freq: Status: Active Protocol: Document 04/02/20 15:11 CGR (Rec: 04/02/20 15:27 CGR [id number]) OT Summary Assessment and Plan Potential Rehabilitation Potential Excellent Analytic Complexity at Evaluation Low Summary OT Impairments Pain,Strength,Balance, Functional Mobility Progress Towards Goals Slow Progress due to Medical Issues Assessment Summary Pt presents as a low complexity evaluation s/p admit for R sided weakness. Pt states her weakness has significantly improved and now her right pinky and ring finger are hyper sensitive but otherwise pt feels close to normal. Pt will benefit from follow up with OT to reassess UE strength and coordination and provide exercises if pt isn't back to her baseline. Pt is safe for d/c home when medically cleared. Goals OT-Other Goals RUE sensation and strength to return to equal to LUE. Days to Meet Goals 2 Frequency of Treatment Frequency Of Treatment Once a Day Treatment Plan OT Treatment Plan Neuromuscular Re-education, Therapeutic Exercises, Discharge Planning Other Treatment Recommendations and Next recheck RUE Treatment Focus Discharge Recommendations OT Discharge Recommendations Home Transportation Needs at Discharge Private Vehicle
[2020-04-02] MEDS: ACETAMINOPHEN 325 MG TABLET 650 MG PO (16:22)
--- NOTE | 2020-04-02 17:51 | PM.DS.1 ---
History of Present Illness History of Present Illness Chief complaint: stroke sx Narrative: 59 year old female who normally sees Dr. Jaamr Garcia of [facility] who presented to the [facility] Emergency Department day of admission with right-sided weakness and dizziness. Went to bed evening prior to admission but woke up in the outreach rep hours of about 03:00 because of severe dizziness and inability to stand. She had to scoot herself down her stairs on her backside in order to be safe to get down stairs. She feels like this was due to her dizziness and instability on her feet rather than any true weakness. Her right arm felt numb and tingly as she laid on the bathroom floor. She was unable to stand because her right leg would not support her. With assistance from her spouse she was able to get into the car and bear some weight on the right leg. She was transported via private vehicle to the emergency department where she was evaluated Emergency department she was found to be mildly hypertensive but otherwise essentially unremarkable. Head CT unremarkable CT angiogram unremarkable normal sinus rhythm on ECG with old incomplete right bundle branch block. During her evaluation and workup in the emergency department her symptoms have gradually but completely resolved. She does not feel like there is any numbness tingly symptoms leftover. She feels like her leg and arm are working correctly. She was able to stand to get into a wheelchair and then get into her bed in the hospital. She had difficulty with [id number] testing when tested in the ER and is perfect with that now. Discharge Providers Provider Date of admission: 04/02/20 10:22 Discharge Date: 04/02/20 Primary care physician: Doctor Denis MD Consults: 04/02/20 10:59 Consult to Discharge Planning Routine Comment: Consult to Occupational Therapy Evaluate & Treat Comment: Physician Instructions: Evaluate and treat Consult to Physical Therapy Evaluate & Treat Comment: Physician Instructions: Evaluate and Treat Consult to Speech Therapy Evaluate & Treat Comment: Physician Instructions: Evaluate and treat Discharge provider: Ady Mccloud MD Summary Hospital Course Discharge Diagnosis: 1. TIA 2. Hypertension 3. GERD without esophagitis Hospital Course: Patient was admitted to the hospital with symptoms on the right side as noted in her HPI and ER notes. She resolve symptoms by time she arrived on the floor. No dysrhythmias were noted on telemetry. MR of the brain with angiography was unremarkable. Echocardiogram was also unremarkable. She also had a negative head CT and negative CT angiography done in the ER. She continued to have no additional neurologic symptoms. Therefore she was felt to be stable to be discharged home. She will continue on aspirin 81 mg daily as a stroke prophylaxis given this event. Patient chronically with hypertension although having a cough with lisinopril. Blood pressure was adequately controlled during this hospitalization. I recommend that she discontinue the lisinopril upon discharge but discuss this with her primary care provider at an upcoming appointment which she had made already for that exact purpose. Given adequate control of blood pressure overall during this hospitalization I did not prescribe an additional antihypertensive at this time. Given lack of findings in her arteries on multiple imaging studies I do not feel that she would benefit from statin therapy at this time. Therefore no statin was prescribed upon discharge Status at Discharge Cognitive/behavioral status at discharge: at baseline, oriented Functional status at discharge: independent ambulation Overall status at discharge: patient is back to baseline Exam Vital Signs (past 8 hours): - 04/02/20 10:00 04/02/20 10:30 04/02/20 10:49 Temperature Pulse Rate 91 H 98 H 101 H Respiratory Rate 20 26 H 24 Blood Pressure 143/71 H Pulse Oximetry 97 97 98 04/02/20 11:00 04/02/20 11:15 04/02/20 15:25 Temperature 99.1 F 99.5 F Pulse Rate 101 H 99 H Respiratory Rate 17 16 Blood Pressure 142/82 H 140/73 Pulse Oximetry 98 98 98 04/02/20 15:48 Temperature Pulse Rate Respiratory Rate Blood Pressure Pulse Oximetry 98 Oxygen Delivery Method Room Air Oxygen Flow Rate 0 Objective Labs Result Diagrams: 04/02/20 08:23 04/02/20 08:23 Labs: Laboratory Results - last 24 hr 04/02/20 04/02/20 04/02/20 08:23 08:23 08:23 WBC 11.3 H RBC 5.39 H Hgb 16.2 H Hct 46.9 H MCV 87.0 MCH 30.1 MCHC 34.6 RDW 13.3 Plt Count 177 Neut % (Auto) 86.1 H Lymph % (Auto) 8.5 L [place] % (Auto) 5.0 Eos % (Auto) 0.2 L Baso % (Auto) 0.2 Neut # (Auto) 9700 H Lymph # (Auto) 1000 L [place] # (Auto) 600 Eos # (Auto) 0 Baso # (Auto) 0 PT 11.2 INR 1.0 APTT 32 Sodium 140 Potassium 3.5 Chloride 103 Carbon Dioxide 29 BUN 16 Creatinine 0.78 Estimated GFR > 60.0 BUN/Creatinine Ratio 20.5 Glucose 133 H Calcium 9.7 Total Bilirubin 0.5 AST 60 H ALT 90 H Alkaline Phosphatase 125 Total Creatine Kinase 373 H CK-MB (CK-2) 6.58 H CK-MB (CK-2) Rel Index 1.8 Troponin I < 0.012 Total Protein 8.0 Albumin 4.8 Globulin 3.2 Albumin/Globulin Ratio 1.5 Urine Color Urine Appearance Urine pH Ur Specific [place] Urine Protein Urine Glucose (UA) Urine Ketones Urine Occult Blood Urine Nitrate Urine Bilirubin Urine Urobilinogen Ur Leukocyte Esterase Urine RBC Urine WBC Amorphous Sediment Urine Bacteria Ur Culture Indicated? Nasal Screen MRSA (PCR) U Opiates 300ng/mL cut Ur Oxycodone Screen Urine Methadone Screen Ur Barbiturates Screen U Tricyclic Antidepress Ur Phencyclidine Scrn Ur Amphetamines Screen U Methamphetamines Scrn Ur MDMA Scrn (Ecstasy) U Benzodiazepines Scrn Urine Cocaine Screen U Marijuana (THC) Screen SARS-CoV-2 (PCR) 04/02/20 04/02/20 04/02/20 10:24 10:52 10:52 WBC RBC Hgb Hct MCV MCH MCHC RDW Plt Count Neut % (Auto) Lymph % (Auto) [place] % (Auto) Eos % (Auto) Baso % (Auto) Neut # (Auto) Lymph # (Auto) [place] # (Auto) Eos # (Auto) Baso # (Auto) PT INR APTT Sodium Potassium Chloride Carbon Dioxide BUN Creatinine Estimated GFR BUN/Creatinine Ratio Glucose Calcium Total Bilirubin AST ALT Alkaline Phosphatase Total Creatine Kinase CK-MB (CK-2) CK-MB (CK-2) Rel Index Troponin I Total Protein Albumin Globulin Albumin/Globulin Ratio Urine Color Yellow Urine Appearance Clear Urine pH 8.0 Ur Specific [place] <=1.005 Urine Protein Negative Urine Glucose (UA) Trace H Urine Ketones Negative Urine Occult Blood Trace-lysed Urine Nitrate Negative Urine Bilirubin Negative Urine Urobilinogen 0.2 Ur Leukocyte Esterase Negative Urine RBC None seen Urine WBC None seen Amorphous Sediment 2+ Urine Bacteria None seen Ur Culture Indicated? Cult not indicated Nasal Screen MRSA (PCR) U Opiates 300ng/mL cut Negative Ur Oxycodone Screen Negative Urine Methadone Screen Negative Ur Barbiturates Screen Negative U Tricyclic Antidepress Negative Ur Phencyclidine Scrn Negative Ur Amphetamines Screen Negative U Methamphetamines Scrn Negative Ur MDMA Scrn (Ecstasy) Negative U Benzodiazepines Scrn Negative Urine Cocaine Screen Negative U Marijuana (THC) Screen Negative SARS-CoV-2 (PCR) Negative 04/02/20 11:30 WBC RBC Hgb Hct MCV MCH MCHC RDW Plt Count Neut % (Auto) Lymph % (Auto) [place] % (Auto) Eos % (Auto) Baso % (Auto) Neut # (Auto) Lymph # (Auto) [place] # (Auto) Eos # (Auto) Baso # (Auto) PT INR APTT Sodium Potassium Chloride Carbon Dioxide BUN Creatinine Estimated GFR BUN/Creatinine Ratio Glucose Calcium Total Bilirubin AST ALT Alkaline Phosphatase Total Creatine Kinase CK-MB (CK-2) CK-MB (CK-2) Rel Index Troponin I Total Protein Albumin Globulin Albumin/Globulin Ratio Urine Color Urine Appearance Urine pH Ur Specific [place] Urine Protein Urine Glucose (UA) Urine Ketones Urine Occult Blood Urine Nitrate Urine Bilirubin Urine Urobilinogen Ur Leukocyte Esterase Urine RBC Urine WBC Amorphous Sediment Urine Bacteria Ur Culture Indicated? Nasal Screen MRSA (PCR) Negative for mrsa U Opiates 300ng/mL cut Ur Oxycodone Screen Urine Methadone Screen Ur Barbiturates Screen U Tricyclic Antidepress Ur Phencyclidine Scrn Ur Amphetamines Screen U Methamphetamines Scrn Ur MDMA Scrn (Ecstasy) U Benzodiazepines Scrn Urine Cocaine Screen U Marijuana (THC) Screen SARS-CoV-2 (PCR) [facility] Medical History Hypertension Nephrolithiasis Social History household members: spouse Smoking Status: Never smoker alcohol intake: current Discharge Plan Discharge Plan Patient Disposition: Home Discharge orders & Medications Prescriptions: New aspirin 81 mg Tablet,Delayed Release (Dr/Ec) 81 mg PO DAILY Qty: 30 RF: 0 Continued omeprazole 40 mg Capsule,Delayed Release(Dr/Ec) 40 mg PO DAILY RF: 0 Discontinued lisinopril 10 mg PO DAILY RF: 0 Follow up/Referrals: Jamar Garcia MD [Physician] - 3-5 Days (keep appointment on Saturday04/05/20) Discharge Health Status Multidrug resistant organism: No MDRO Diet/Activity/Treatments Diet: Diet as Tolerated Discharge Data Primary Care Provider: Miscellaneous,Doctor Attending Provider: Jamar Garcia
--- NOTE | 2020-04-02 18:21 | PC.NURSE ---
Pt given discharge instructions. Pt reports an understanding and denies questions. Pt is A&o X4 and walks with a slow but steady gait. Pt leaves with discharge paperwork and belongings including her phone. pt taken to lobby via wheelchair where her spouse is waiting to take her home.
== END 2020-04-02 18:27 | disposition home or self-care (01) ==
LOC: ED 10:21 → AC 10:22 → ICU 10:59
PROVIDERS: Admitting Provider Internal Medicine; Emergency Provider Emergency Medicine; Referring Provider Emergency Medicine; Visit Provider Family Medicine
DX: G45.9 Transient cerebral ischemic attack, unspecified (principal); R42 Dizziness and giddiness; R20.0 Anesthesia of skin; R53.1 Weakness; I10 Essential (primary) hypertension; K21.9 Gastro-esophageal reflux disease without esophagitis; Z20.822 Contact with and (suspected) exposure to COVID-19
CPT/HCPCS: 36415; 70450; 70496; 70498; 70548; 70553; 80053; 80305; 81001; 82550; 82553; 82962; 84484; 85025; 85610; 85730; 87635; 87797; 92522; 93005; 93010; 93306; 97161; 97165; 99235; 99284; C9803; G0378; A9579

== ENCOUNTER → 2020-05-23 12:25 | Outpatient (CLI) | payer OTHER, SELFPAY ==
[2020-04-02 11:00] VITALS: BMI 29.8
--- NOTE | 2020-05-23 | DI.RAD.S_ITS ---
PROCEDURE: XR CERVICAL SPINE 2V OR 3V INDICATIONS: Cervicalgia TECHNIQUE: 3 view(s) of the cervical spine were acquired. COMPARISON: None. FINDINGS: Bones: No fracture. Straightening of the normal lordotic curvature. Multilevel degenerative endplate sclerosis and spurring. Diffuse facet arthropathy. Mild narrowing of the C4-C5 and C5-C6 disc spaces. Minimal levocurvature. Soft tissues: No prevertebral soft tissue swelling. IMPRESSION: Mid to lower cervical spondylosis as above. Straightening of the normal lordotic curvature. Dictated by: Mal Kirkpatrick M.D. on 05/23/2020 at 14:07 Approved by: Mal Kirkpatrick M.D. on 05/23/2020 at 14:08
== END ==
PROVIDERS: PCP Family Medicine; Referring Provider Psychiatry & Neurology Neurology; Visit Provider Psychiatry & Neurology Neurology
DX: M54.2 Cervicalgia (principal); G81.91 Hemiplegia, unspecified affecting right dominant side; M47.812 Spondylosis without myelopathy or radiculopathy, cervical region
CPT/HCPCS: 72040

== ENCOUNTER → 2020-06-08 08:43 | Outpatient (CLI) | payer OTHER, SELFPAY ==
[2020-04-02 11:00] VITALS: BMI 29.8
--- NOTE | 2020-06-08 | DI.MRI.S_ITS ---
PROCEDURE: MR CERVICAL SPINE WO CON INDICATIONS: Cervicalgia TECHNIQUE: Noncontrast sagittal T1 spin echo and T2 fast spin echo, sagittal STIR, foraminal oblique sagittal T2 fast spin echo, and axial gradient echo or T2 fast spin echo through the cervical spine. COMPARISON: None. FINDINGS: Image quality: Excellent. Alignment and Curvature: There is normal bony alignment. Bone Marrow: Marrow demonstrates normal overall signal. Spinal Cord: Visualized spinal cord has normal size and signal. No cerebellar tonsillar herniation. Paraspinous Soft Tissues: No paravertebral masses. Prevertebral soft tissues are normal in thickness. C2-C3: No spinal canal or neural foraminal stenosis. C3-C4: Central posterior disc osteophyte complex indents the ventral thecal sac without mass effect upon the cord. No neural foraminal stenosis. C4-C5: Uncovertebral spurring produces mild neural foraminal narrowing bilaterally. Posterior disc-osteophyte complex slightly flattens the ventral cord C5-C6: Facet and uncovertebral hypertrophy contribute to mild bilateral neural foraminal stenosis. Posterior disc-osteophyte complex flattens the ventral cord slightly. C6-C7: No spinal canal stenosis. Mild neural foraminal narrowing on the right due to uncovertebral spurring. C7-T1: No spinal canal or neural foraminal stenosis. IMPRESSION: Mild multilevel multifactorial degenerative changes. Dictated by: Bhavin Moore M.D. on 06/08/2020 at 10:40 Approved by: Bhavin Moore M.D. on 06/08/2020 at 10:45
== END ==
PROVIDERS: PCP Family Medicine; Referring Provider Family Medicine; Visit Provider Family Medicine
DX: M54.2 Cervicalgia (principal); M50.30 Other cervical disc degeneration, unspecified cervical region
CPT/HCPCS: 72141